=== PATIENT | female | born 2000 | race Caucasian/White ===

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

== ENCOUNTER 2019-01-24 19:01 | Emergency (ER) | payer BC ==
[2019-01-24] MEDS ORDERED: CEPHALEXIN500 M2 PO (20:01)
[2019-01-24 20:10] VITALS: BP 112/69
== END 2019-01-24 20:10 | disposition home or self-care (01) ==
LOC: ED 19:01
DX: L03.114 Cellulitis of left upper limb (principal); Z90.89 Acquired absence of other organs

== ENCOUNTER → 2021-11-06 | Outpatient (CLI) | payer BC ==
[~2021-11-06] MED LIST changes: +CEPHALEXIN500 M2 PO
[2021-11-06 15:00] LABS: CLUE CELLS NOT OBSERVED (Not Observd)
== END ==
LOC: LAB 14:16
PROVIDERS: Nurse Practitioner Family
DX: Z20.2 Contact with and (suspected) exposure to infections with a predominantly sexual mode of transmission (principal)
CPT/HCPCS: Q0111